=== PATIENT | male | born 1985 | race Two or more races ===

== ENCOUNTER 2016-12-08 21:58 | Emergency (ER) | payer SELFPAY ==
[2016-12-08 22:09] VITALS: BP 161/115; PULSE 105; RESP 24; TEMP 98.1; O2SAT 95
== END 2016-12-08 22:12 | disposition left against medical advice (07) ==
LOC: CED 21:58
DX: Z53.21 Procedure and treatment not carried out due to patient leaving prior to being seen by health care provider (principal)